=== PATIENT | male | born 2000 | race Caucasian/White ===

== ENCOUNTER 2023-07-30 15:57 | Emergency (ER) | payer OTHER ==
[~2023-07-30] VITALS: Ht 172.7 cm; Wt 66.0 kg
[2023-07-30] MEDS: diazePAM 5MG TABLET PO ONE (16:58)
[2023-07-30] MEDS: KETOROLAC 30 MG/ML 1ML VIAL IM ONE (16:59)
[2023-07-30] MEDS ORDERED: METH-1164 PO (17:31)
[2023-07-30] MEDS ORDERED: MEDR4TAB PO (17:31)
[2023-07-30] MEDS ORDERED: NAPR-837 PO (17:31)
[2023-07-30 17:46] VITALS: BP 117/6; TEMP 98.7; O2SAT 97
== END 2023-07-30 17:47 | disposition home or self-care (01) ==
LOC: M ED 15:57
DX: M54.42 Lumbago with sciatica, left side (principal)
CPT/HCPCS: 72110; 99283; J1100; J1885

== ENCOUNTER 2024-02-02 15:59 | Emergency (ER) | payer OTHER ==
[~2024-02-02] VITALS: Ht 172.7 cm; Wt 79.5 kg
[~2024-02-02 15:59] MED LIST: MEDR4TAB PO; METH-1164 PO; NAPR-837 PO
[2024-02-02] MEDS ORDERED: ALLE10TA62 PO (17:19)
[2024-02-02] MEDS ORDERED: FLON1SPR NARES (17:19)
[2024-02-02 17:24] VITALS: BP 124/85; TEMP 97.4; O2SAT 96
== END 2024-02-02 17:34 | disposition home or self-care (01) ==
LOC: M ED 15:59
DX: H65.03 Acute serous otitis media, bilateral (principal)